=== PATIENT | female | born 1960 | race African-American/Black ===

== ENCOUNTER 2016-10-13 07:06 | Emergency (ER) | payer OTHER ==
[2016-10-13] MEDS ORDERED: IBUPROFEN 600 MG TAB PO ONE ×2 (07:17→07:27)
[2016-10-13 07:26] VITALS: RESP 16
--- NOTE | 2016-10-13 07:29 | UCPHY ---
H & P Time Seen by Provider: 10/13/16 07:16 Patient Type: New HPI/ROS: CHIEF COMPLAINT: HISTORY OF PRESENT ILLNESS: this 56-year-old female has been ill for about 5 days. First 2-3 days was that of a sore throat and general feeling on well without fever. The fever began in earnest as of yesterday. It has been pretty high noting today is 103. Furthermore best when the cough started and it has been a dry cough without wheezing. Finally yesterday also started with a headache across the frontal area. She has had no antecedent URI to suggest sinusitis. There has been no pain focally over the sinuses. She has had no known specific exposure to influenza. She did not get the seasonal influenza. She also noticed some diarrhea yesterday as well has already had 5 trips to the bathroom today of a liquid brown stool without blood. 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 ENT: No sore throat per se however has been sore over the larynx. Cardiovascular: No chest pain, no palpitations. Respiratory: See above, cough has been causing her stay awake the Delsym is not working and she notes some pain in the periumbilical area from coughing so hard Gastrointestinal: No nausea vomiting. No abdominal pain. Genitourinary: There is diffuse back pain but no focal flank pain Musculoskeletal: Diffuse back pain Skin: No rashes. Neurological: See above. 10 point ROS otherwise negative Past Medical/Surgical History: Carotid body tumor Obesity Physical Exam: General Appearance: Alert, no distress. Afebrile, looks like she feels pretty crappy.. Normal phonation. No respiratory distress Eyes: Pupils equal and round no pallor or injection. No icterus ENT, Mouth: Mucous membranes moist. Pharynx without erythema or exudate. TM Clear. Sinuses nontender. Larynx is nontender Neck: No adenopathy. Supple. No JVD. Trachea in midline. Respiratory: There are no retractions, lungs are clear to auscultation, Dry raspy wet breath sounds, without rales Abdomen: Obese, soft, nontender. Back: No CVA tenderness. Skin: Warm and dry, no rashes. Extremities no edema Constitutional: Initial Vital Signs Temperature (C) 39.4 C H 10/13/16 07:22 Heart Rate 105 H 10/13/16 07:22 Respiratory Rate 16 10/13/16 07:22 Blood Pressure 142/82 H 10/13/16 07:22 O2 Sat (%) 90 L 10/13/16 07:22 O2 Delivery Mode Room Air Allergies/Adverse Reactions: nitrofurantoin [From Macrobid] Allergy (Verified 10/13/16 07:26) nitrofurantoin macrocrystalline [From Macrobid] Allergy (Verified 10/13/16 07:26 ) Home Medications: Medication Instructions Recorded Benzonatate 200 mg PO TID PRN #28 capsule 10/13/16 Cefpodoxime Proxetil [Vantin] 200 mg PO BID #20 tab 10/13/16 Hydrocodone/APAP 5/325 [Marlin 1 tab PO Q4 #15 tab 10/13/16 5/325 (*)] Protonix 10/13/16 Medical Decision Making - Diagnostics Imaging: Chest x-ray: Two-view chest. Interpreted by radiologist. Films reviewed by me. Bronchitis. No focal pneumonia. ED Course/Re-evaluation: She was really feeling pretty miserable. I reviewed with her her collection of [id number] medicines. Yesterday she had taken quite a bit of ibuprofen for the discomfort which really did not help. Today she was taking some [id number] products which have Tylenol, which again did not really help. Furthermore she was taking both Delsym as well as an [id number] multi symptom Cough and cold reliever which also did contain x-ray for him. I counseled her about be more judicious in her taking [id number] products for her cough and cold symptoms so as to avoid doubled him. I feel that she would have better mild should she concentrate on 1 of the following for the cough: Benzonatate, Delsym, or the Vicodin. I chose the Vicodin as she was having quite a bit of a headache and thereby this would serve a dual function [place] Prescription Drug Monitoring Program checked: The only activity has been that of a #30 tramadol in June Differential Diagnosis: Diagnostic considerations include, but are not limited to, the following: Influenza, URI, sinusitis, pharyngitis, otitis media, pneumonia, allergy. - Data Points Medications Given: Discontinued Medications Ibuprofen (Motrin) 600 mg PO EDNOW ONE Stop: 10/13/16 07:28 Last Admin: 10/13/16 07:30 Dose: 600 mg Oxycodone HCl (Oxycodone Ir) 5 mg PO EDNOW ONE Stop: 10/13/16 07:46 Last Admin: 10/13/16 08:51 Dose: 5 mg Departure - Departure Disposition: Home, Routine, Self-Care Clinical Impression: Bronchitis, Influenza, Diarrhea Condition: Good Instructions: Influenza (ED), Acute Bronchitis (ED) Additional Instructions: For the cough take Delsym for tsp twice a day or benzonatate or Vicodin. However do not take them in combination Vicodin which is for the cough does contain Tylenol. Thus if you need fever management then take only 1 tablet of Tylenol with it if he was recently taken the Vicodin When you are able, submit a stool specimen Referrals: IN STATE,. [Primary Care Provider] - As per Instructions Prescriptions: Benzonatate 200 mg PO TID PRN #28 capsule PRN Reason: Cough, Moderate Hydrocodone/APAP 5/325 [Marlin 5/325 (*)] 1 tab PO Q4 #15 tab Cefpodoxime Proxetil [Vantin] 200 mg PO BID #20 tab - PQRS PQRS Measurement: Not applicable
[2016-10-13] MEDS ORDERED: oxyCODONE IR 5 MG TAB PO ONE (07:45)
--- NOTE | 2016-10-13 08:44 | DX ---
Chest, PA and Lateral October 13, 2016 History: Cough. Findings: Heart size is within normal limits. Peribronchial wall thickening is seen bilaterally. Ther e is mild elevation of the right hemidiaphragm. No evidence for pleural effusion or pneumothorax. Mil d degenerative change is seen in the thoracic spine with a mild dextroscoliotic curvature. Impression: Mild bronchitis.
[2016-10-13 12:31] VITALS: BP 123/77; PULSE 87; TEMP 99.1; O2SAT 97
== END 2016-10-13 09:10 | disposition home or self-care (01) ==
LOC: CED 07:06
DX: J20.9 Acute bronchitis, unspecified (principal); J11.1 Influenza due to unidentified influenza virus with other respiratory manifestations; R19.7 Diarrhea, unspecified; E66.9 Obesity, unspecified; Z68.36 Body mass index [BMI] 36.0-36.9, adult
CPT/HCPCS: 71020-PO; 99203-PO; G0463-PO